=== PATIENT | female | born 1995 | race Two or more races ===

== ENCOUNTER 2019-12-16 19:01 | Emergency (ER) | payer MEDICAID, OTHER ==
[~2019-12-16] VITALS: Ht 177.8 cm; Wt 65.8 kg
[2019-12-16 20:00] LABS: BASOPHILS % (AUTO) 0.3 % (0.0-2.0); HEMATOCRIT 41 % (33-45); HEMOGLOBIN 13.5 g/dL (11.5-14.8); LYMPHOCYTES # (AUTO) 1.2 /CMM (0.8-4.8); LYMPHOCYTES % (AUTO) 10.6 % (20.0-44.0); MEAN CORPUSCULAR HGB CONC 33 g/dl (31.0-36.0); MEAN CORPUSCULAR VOLUME 87 fL (82-100); MONOCYTES # (AUTO) 1.1 /CMM (0.1-1.30); MONOCYTES % (AUTO) 9.7 % (2.0-12.0); NEUTROPHILS # (AUTO) 8.9 /CMM (1.8-8.9); NEUTROPHILS % (AUTO) 79.4 % (43.0-81.0); PLATELET COUNT (AUTO) 288 /CMM (150-450); RED BLOOD CELL COUNT(AUTO) 4.74 MIL/uL (4.0-5.2); WHITE BLOOD COUNT (AUTO) 11.2 K/uL (4.3-11.0)
[2019-12-16 20:10] LABS: CALCIUM, SERUM 9.6 mg/dL (8.5-10.1); CARBON DIOXIDE 18 mmol/L (21-32); CHLORIDE 99 mmol/L (98-107); CREATININE 1.4 mg/dL (0.6-1.3); GLUCOSE 164 mg/dL (74-106); POTASSIUM 3.2 mmol/L (3.5-5.1); SODIUM SERUM 139 mmol/L (136-145); UREA NITROGEN, BLOOD 9 mg/dL (7-18)
[2019-12-16 20:17] LABS: ACETAMINOPHEN 0 ug/ml (10-30); ALANINE AMINOTRANSFERASE 20 U/L (12-78); ALBUMIN 4.7 g/dL (3.4-5.0); ALCOHOL, BLOOD < 3 mg/dL (0-0); ALKALINE PHOSPHATASE 58 U/L (46-116); ASPARTATE AMINOTRANSFERASE 19 U/L (15-37); BILIRUBIN,DIRECT 0.3 mg/dL (0.0-0.2); BILIRUBIN,TOTAL 1.6 mg/dL (0.2-1.0); TOTAL PROTEIN, SERUM 8.1 g/dL (6.4-8.2)
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
[2019-12-16] MEDS ORDERED: OLANZAPINE 5 MG TABLET PO ONE (21:00)
--- NOTE | 2019-12-16 21:29 | NUR ---
HWY PATROL LEFT. ABLE TO OBTAIN BLOOD.
--- NOTE | 2019-12-16 21:32 | NUR ---
Luli head in ED - 12/16/19 at 2149 by JEMAL PICKED UP BY
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
[2019-12-17] MEDS ORDERED: HALOPERIDOL LACTATE INJ 5 MG/ML VIAL ONE (00:31)
[2019-12-17] MEDS ORDERED: diphenhydrAMINE HCL 50 MG/ML VIAL ONE (00:32)
--- NOTE | 2019-12-17 00:40 | NUR ---
PT MEDICATED ORDERED
[2019-12-17] MEDS ORDERED: HALOPERIDOL LACTATE INJ 5 MG/ML VIAL IM ONE (01:00)
[2019-12-17] MEDS ORDERED: diphenhydrAMINE HCL 50 MG/ML VIAL IM ONE (01:00)
[2019-12-17 01:33] LABS: APPEARANCE,URINE SL CLOUDY (CLEAR); BILIRUBIN,URINE SMALL (NEGATIVE); BLOOD, URINE TRACE-INTA Ery/uL (NEGATIVE); COLOR,URINE YELLOW (YELLOW); KETONES,URINE >=80 (NEGATIVE); LEUKOCYTE ESTERASE ,URINE TRACE (NEGATIVE); NITRITE, URINE NEGATIVE (NEGATIVE); PH,URINE 6.5 (5.0-8.0); PROTEIN,URINE 100 mg/dl (NEGATIVE); UGLUCOSE NEGATIVE (NEGATIVE); UROBILINOGEN,URINE 0.2 EU/dL (0.2)
[2019-12-17 01:41] LABS: BACTERIA,URINE None seen /HPF (None Seen); SQUAMOUS EPITHELIAL CELL,UR Moderate /HPF (None Seen)
--- NOTE | 2019-12-17 04:15 | NUR ---
Patient is resting comfortably in bed with eyes closed. Easily aroused. VSS
--- NOTE | 2019-12-17 06:55 | NUR ---
PT ASLEEP. VSS. SITTER AT BEDSIDE FOR SAFETY. WILL CONTINUE TO MONITOR
--- NOTE | 2019-12-17 08:52 | NUR ---
SITTER AT BEDSIDE FOR SAFETY.
--- NOTE | 2019-12-17 09:42 | NUR ---
FOOD PROVIDED, TOLERATED WELL.
--- NOTE | 2019-12-17 10:35 | NUR ---
PATIENT ASLEEP, EASILY AROUSABLE BY VOICE. HOOKED TO MONITOR, WILL CONTINUE TO MONITOR ACCORDINGLY. KEPT SAFE, WARM AND COMFORTABLE.
--- NOTE | 2019-12-17 10:45 | NUR ---
INSPECTOR COLD WORKING CALLED STEVIE WILL BE HERE SHORTLY.
--- NOTE | 2019-12-17 11:50 | NUR ---
mainor crisis regulator pin inserter at bedside
--- NOTE | 2019-12-17 12:03 | NUR ---
SW attempted to speak to R[facility] patient's ex-boyfriend/roommate unable to speak to Rc however this SW left a voicemail with callback information.
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
--- NOTE | 2019-12-17 13:41 | NUR ---
covid swab collected and sent to lab
--- NOTE | 2019-12-17 14:17 | NUR ---
received a call from the lab regarding covid 19 result "negative"
--- NOTE | 2019-12-17 18:35 | NUR ---
PER NANCY CHURCH INTAKE, ARRANGING FOR PATIENT TO BE TRANSFERRED TO [facility], AWAITING FOR CALL BACK FROM [facility] AFTER 193 DUE TO HOSPITAL SHORT STAFFED
--- NOTE | 2019-12-17 19:19 | NUR ---
[facility] [phone]
--- NOTE | 2019-12-17 20:23 | NUR ---
PT ACCEPTED AT THE [facility] PT PATRICIA GO TO ROOM 145-B ACCEPTING MD GUY PHONE NUMBER FOR REPORT AYE AGUILAR
--- NOTE | 2019-12-17 20:34 | NUR ---
TRANSPORT ([facility]) ETA [id number]
--- NOTE | 2019-12-17 21:13 | NUR ---
REPORT GIVEN TO [facility] AYE AGUILAR.
--- NOTE | 2019-12-17 23:55 | NUR ---
TRANSPORT AT BEDSIDE REPORT GIVEN TO EMT TRANSPORT.
[2019-12-17 23:57] VITALS: BP 103/69
== END 2019-12-17 23:58 ==
LOC: ER 19:03 → EDBD 19:03 → ER 12-17 23:58
DX: F99 Mental disorder, not otherwise specified (principal); R45.1 Restlessness and agitation; Z20.828 Contact with and (suspected) exposure to other viral communicable diseases
CPT/HCPCS: 36415; 80048; 80076; 80299; 80307 ×2; 80320; 81001; 84703; 85025; 87426; 96372 ×2; 99285; C9803; J1200; J1630; 81000-TC; G0480